=== PATIENT | male | born 1945 | race Caucasian/White ===

== ENCOUNTER 2020-07-08 06:54 | Outpatient (CLI) | payer MEDICARE, SELFPAY ==
[2020-07-08 07:34] LABS: Basophils Absolute Auto 0.1 K/mm3 (0.0-0.1); Eosinophils Absolute Auto 0.4 K/mm3 (0-0.3); Eosinophils Percent Auto 5.7 % (0-4.4); Hematocrit 48.3 % (42.0-52.0); Hemoglobin 16.1 g/dL (14.0-18.0); Immature Granulocyte Absolute 0.05 K/mm3 (0.00-0.031); Immature Granulocyte Percent A 0.7 % (0-0.5); Lymphocytes Absolute Auto 2.68 K/mm3 (0.9-3.2); Lymphocytes Percent Auto 36.6 % (18.3-44.2); Mean Corpuscular HGB Conc 33.3 g/dl (32-36); Mean Corpuscular Hemoglobin 32.3 pg (26-34); Mean Platelet Volume 9.6 fl (7.4-10.4); Monocytes Absolute Auto 0.6 K/mm3 (0.1-0.6); Monocytes Percent Auto 7.9 % (2.6-8.5); Neutrophils Absolute Auto 3.5 K/mm3 (1.3-6.7); Neutrophils Percent Auto 48.1 % (45.5-73.1); Platelet Count Result 225 k/mm3 (150-375); Red Blood Count 4.98 M/mm3 (4.6-6.20); Red Cell Distribution Width 13.1 % (11.5-14.5); White Blood Count 7.3 K/mm3 (4.5-10.0)
[2020-07-08 07:44] LABS: Hemoglobin A1C 5.3 % (<5.7)
[2020-07-08 07:50] LABS: Alanine Aminotransferase 24 U/L (4-50); Albumin Level 4.4 g/dL (3.5-5.1); Alkaline Phosphatase 71 U/L (38-126); Anion Gap 7 mmol/L (8-16); Aspartate Amino Transferase 33 U/L (17-59); Bilirubin,Total 0.6 mg/dL (0.2-1.3); Blood Urea Nitrogen 15 mg/dL (9-20); Calcium 9.1 mg/dL (8.4-10.2); Carbon Dioxide 26 mmol/L (22-30); Chloride 105 mmol/L (98-107); Cholesterol 169 mg/dL (0-200); Estimated Glomerular Filt Rate > 60; Glucose 117 mg/dL (75-110); HDL Direct 66 mg/dL; Sodium 138 mmol/L (137-145); Triglycerides 196 mg/dL (<150)
[2020-07-08 08:02] LABS: LDL Cholesterol Direct 83 mg/dL
[2020-07-08 08:51] LABS: Creatinine Urine 241.9 mg/dL
[2020-07-08 09:16] LABS: MALB Creatinine Ratio 121.7 mg/g (0-30); Microalbumin Urine Random 294.4 mg/L (0-16.7)
[2020-07-08 09:23] LABS: Vitamin D 25 Hydroxy 29.8 ng/mL
== END 2020-07-08 06:55 | disposition home or self-care (01) ==
PROVIDERS: PCP Internal Medicine; Visit Provider Internal Medicine
DX: E78.2 Mixed hyperlipidemia (principal); H35.30 Unspecified macular degeneration; N40.0 Benign prostatic hyperplasia without lower urinary tract symptoms; R73.03 Prediabetes; R97.20 Elevated prostate specific antigen [PSA]; E55.9 Vitamin D deficiency, unspecified
CPT/HCPCS: 36415; 80053; 80061; 82043; 82306; 83036; 84443; 85025

== ENCOUNTER 2020-08-11 07:13 | Outpatient (CLI) | payer MEDICARE, SELFPAY | END 2020-08-11 07:14 | disposition home or self-care (01) | LOC: ANHLAB 07:15 | PROVIDERS: PCP Internal Medicine; Visit Provider Internal Medicine | DX: E78.2 Mixed hyperlipidemia (principal); R79.89 Other specified abnormal findings of blood chemistry | CPT/HCPCS: 36415; 84443 ==

== ENCOUNTER 2020-11-10 07:27 | Outpatient (CLI) | payer MEDICARE, SELFPAY ==
[2020-11-10 08:17] LABS: Anion Gap 7 mmol/L (8-16); Blood Urea Nitrogen 27 mg/dL (9-20); Calcium 9.6 mg/dL (8.4-10.2); Carbon Dioxide 27 mmol/L (22-30); Chloride 107 mmol/L (98-107); Cholesterol 121 mg/dL (0-200); Estimated Glomerular Filt Rate > 60; Glucose 106 mg/dL (75-110); HDL Direct 74 mg/dL; Sodium 141 mmol/L (137-145); Triglycerides 80 mg/dL (<150)
[2020-11-10 08:28] LABS: LDL Cholesterol Direct 33 mg/dL
[2020-11-10 09:08] LABS: Creatinine Urine 131.4 mg/dL
[2020-11-10 09:26] LABS: MALB Creatinine Ratio 130.4 mg/g (0-30); Microalbumin Urine Random 171.4 mg/L (0-16.7)
== END 2020-11-10 07:28 | disposition home or self-care (01) ==
PROVIDERS: PCP Internal Medicine; Visit Provider Internal Medicine
DX: E78.2 Mixed hyperlipidemia (principal); R03.0 Elevated blood-pressure reading, without diagnosis of hypertension; R73.03 Prediabetes
CPT/HCPCS: 36415; 80048; 80061; 82043

== ENCOUNTER 2021-01-06 08:10 | Outpatient (CLI) | payer MEDICARE, SELFPAY ==
--- NOTE | ~2021-01-06 | CT_ITS ---
EXAMINATION: CT abdomen pelvis w con EXAM DATE: 01/06/2021 09:07 INDICATION: Prostate cancer. TECHNIQUE: Spiral CT of the abdomen and pelvis was performed following intravenous injection of 100 m L Omnipaque 350. Axial, coronal and sagittal images of the abdomen and pelvis were reviewed. The do se-length product (DLP) for this examination was 320.40 mGy-cm. The exposure was tailored according to patient size (auto mA exposure control), and iterative reconstruction (ASIR) was used as additiona l dose reduction technique. There is no prior study for comparison. FINDINGS: The liver, spleen, adrenal glands and pancreas are unremarkable. Gallbladder is unremarkab le. No biliary obstruction. There is a bifurcated left renal pelvis, collecting system with mild to moderate hydronephrosis of the inferior moiety. These appear to connect at the renal pelvis, only on e normal calibered ureter identified. No obstructing stones. Prostatomegaly with the prostate measuri ng about 6 cm in diameter and probable TURP defect, correlate with history. Small amount of bladder tenting toward the urachus. There is no retroperitoneal or pelvic lymphadenopathy. There is mild t o moderate scattered arteriosclerotic disease. Small umbilical and tiny inguinal fat-containing herni as. The appendix is normal. The stomach and small bowel are unremarkable. There is expected amount of c olonic stool. No free intraperitoneal gas. The heart is normal in size. There are no pericardial or pleural effusions. The lung bases are unremarkable. There are no osteoblastic or osteolytic les ions identified. There is mild thoracolumbar scoliosis. IMPRESSION: 1. No evidence of metastatic disease. 2. 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 3. Moderate prostatomegaly. Reviewed, dictated and finalized at location B. IMPRESSION: 1. No evidence of metastatic disease. 2. 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 3. Moderate prostatomegaly.
--- NOTE | ~2021-01-06 | NM_ITS ---
EXAMINATION: NM bone scan whole body DATE: 01/06/2021 12:16 INDICATION: Prostate cancer TECHNIQUE: 25.0 mCi Tc-99m HDP was administered intravenously. Delayed whole-body scintigrams were o btained. COMPARISON: CT abdomen and pelvis and chest radiograph dated 01/06/2021 FINDINGS: Focus of moderate increased uptake at the anterior left sixth rib corresponding to a linear band of s clerosis on CT most consistent with a healing rib fracture. Mild likely degenerative joint centered u ptake at the sternomanubrial articulation, bilateral acromioclavicular and sternoclavicular joints, b ilateral mid feet, hands and wrists. No other suspicious foci of abnormal bone uptake to suggest meta static disease. IMPRESSION: 1. Scattered mild likely degenerative joint centered uptake as well as a single focus of moderate upt mary at the anterior left sixth rib which appears to correspond to a healing rib fracture. No other fo ci suspicious for metastatic disease. Reviewed, dictated and finalized at location A. IMPRESSION: 1. Scattered mild likely degenerative joint centered uptake as well as a single focus of moderate uptake at the anterior left sixth rib which appears to corre spond to a healing rib fracture. No other foci suspicious for metastatic diseas e.
--- NOTE | ~2021-01-06 | XR_ITS ---
EXAMINATION: XR chest 2V DATE: 01/06/2021 08:31 INDICATION: Prostate cancer TECHNIQUE: PA and lateral views of the chest were obtained. COMPARISON: Chest radiograph dated 07/03/[address] dated 01/17/2019 FINDINGS: The lungs are clear with no focal airspace opacities, pulmonary edema, pleural effusion or pneumothor ax. The cardiomediastinal silhouette is normal. Calcified mediastinal lymph nodes consistent with old granulomatous disease. Mild thoracic spondylosis. Heterotopic ossification along the right coracocla vicular ligament likely sequela of chronic trauma. IMPRESSION: 1. No acute cardiopulmonary disease. Reviewed, dictated and finalized at location A.
[2021-01-06 09:06] LABS: Estimated Glomerular Filt Rate > 60
== END 2021-01-06 08:11 | disposition home or self-care (01) ==
PROVIDERS: PCP Internal Medicine; Visit Provider Urology
DX: C61 Malignant neoplasm of prostate (principal)
CPT/HCPCS: 71046; 74177; 78306; A9561; Q9967

== ENCOUNTER 2021-04-28 08:20 | Outpatient (CLI) | payer MEDICARE, SELFPAY ==
--- NOTE | ~2021-04-28 | MR_ITS ---
EXAMINATION: MR pelvis wo/w con DATE: 04/28/2021 09:52 INDICATION: Prostate cancer TECHNIQUE: Magnetic resonance imaging (MRI) of the pelvis was performed without and with 13 mL Multih ance intravenous contrast. Fullfield sequences of the pelvis included axial and coronal T2-weighted S S FSE, axial, sagittal and coronal 2D FIESTA, axial 2D FIESTA FS, axial SSFSE-IR BRANDAN, axial dual-echo T1-weighted FSPGR, axial and coronal T1 weighted LAVA, 3D axial T2 Cube, axial diffusion-weighted SE with apparent diffusion coefficient (ADC) maps. Postcontrast sequences included a time course axial T1-weighted LAVA and sagittal and coronal T1-weighted LAVA. COMPARISON: CT abdomen and pelvis dated 01/06/2021 FINDINGS: Prostate measures 4.9 x 3.3 x 4.2 cm. 3.8 x 4.7 x 1.3 cm region of T2 hyperintense hydrocele position ed between the prostate and the anterior wall of the rectum. No pathologically enlarged pelvic or ing uinal lymphadenopathy. Small amount of ascites in the pelvis. Again seen is a parapelvic cyst at the left kidney. Visualized bowels are unremarkable. Mild lumbar levocurvature with moderate spondylosis. Normal bone marrow signal throughout with no pathologic marrow replacing process. IMPRESSION: 1. 3.8 x 4.7 x 1.3 cm collection of hydrogel positioned between the anterior wall of the rectum and t he enlarged prostate. No evident metastatic disease. Reviewed, dictated and finalized at location A. IMPRESSION: 1. 3.8 x 4.7 x 1.3 cm collection of hydrogel positioned between the anterior wa ll of the rectum and the enlarged prostate. No evident metastatic disease.
[2021-04-28 09:05] LABS: Estimated Glomerular Filt Rate > 60
== END 2021-04-28 08:21 | disposition home or self-care (01) ==
LOC: ANHIMG 08:26
PROVIDERS: PCP Internal Medicine; Visit Provider Radiology Radiation Oncology
DX: C61 Malignant neoplasm of prostate (principal)
CPT/HCPCS: 72197; A9577

== ENCOUNTER 2021-08-03 07:51 | Outpatient (CLI) | payer MEDICARE, SELFPAY ==
[2021-08-03 08:20] LABS: Basophils Absolute Auto 0.1 K/mm3 (0.0-0.1); Basophils Percent Auto 1.1 % (0.2-1.2); Eosinophils Absolute Auto 0.3 K/mm3 (0-0.3); Eosinophils Percent Auto 5.8 % (0-4.4); Hematocrit 39.1 % (42.0-52.0); Hemoglobin 13.1 g/dL (14.0-18.0); Immature Granulocyte Absolute 0.03 K/mm3 (0.00-0.031); Immature Granulocyte Percent A 0.7 % (0-0.5); Lymphocytes Absolute Auto 0.85 K/mm3 (0.9-3.2); Lymphocytes Percent Auto 19.1 % (18.3-44.2); Mean Corpuscular HGB Conc 33.5 g/dl (32-36); Mean Corpuscular Hemoglobin 33.9 pg (26-34); Monocytes Absolute Auto 0.7 K/mm3 (0.1-0.6); Neutrophils Absolute Auto 2.6 K/mm3 (1.3-6.7); Neutrophils Percent Auto 58.3 % (45.5-73.1); Platelet Count Result 208 k/mm3 (150-375); Red Blood Count 3.87 M/mm3 (4.6-6.20); Red Cell Distribution Width 13.5 % (11.5-14.5); White Blood Count 4.5 K/mm3 (4.5-10.0)
[2021-08-03 08:30] LABS: Hemoglobin A1C 5.2 % (<5.7)
[2021-08-03 08:32] LABS: Alanine Aminotransferase 45 U/L (4-50); Albumin Level 4.6 g/dL (3.5-5.1); Alkaline Phosphatase 82 U/L (38-126); Anion Gap 5 mmol/L (8-16); Aspartate Amino Transferase 42 U/L (17-59); Bilirubin,Total 0.7 mg/dL (0.2-1.3); Blood Urea Nitrogen 18 mg/dL (9-20); Calcium 9.7 mg/dL (8.4-10.2); Carbon Dioxide 26 mmol/L (22-30); Chloride 105 mmol/L (98-107); Estimated Glomerular Filt Rate > 60; Glucose 121 mg/dL (65-110); Potassium 3.9 mmol/L (3.4-5.0); Sodium 136 mmol/L (137-145)
[2021-08-03 08:44] LABS: Creatinine Urine 143.2 mg/dL
[2021-08-03 08:49] LABS: MALB Creatinine Ratio 123.4 mg/g (0-30); Microalbumin Urine Random 176.7 mg/L (0-16.7)
[2021-08-03 08:54] LABS: Vitamin D 25 Hydroxy 36.5 ng/mL
[2021-08-03 09:02] LABS: Prostate Specific Antigen 0.1 ng/mL (< OR = 4.0)
== END 2021-08-03 07:52 | disposition home or self-care (01) ==
LOC: ANHLAB 07:55
PROVIDERS: PCP Internal Medicine; Visit Provider Internal Medicine
DX: E55.9 Vitamin D deficiency, unspecified (principal); I10 Essential (primary) hypertension; R97.20 Elevated prostate specific antigen [PSA]; Z12.5 Encounter for screening for malignant neoplasm of prostate; R73.03 Prediabetes
CPT/HCPCS: 36415; 80053; 82043; 82306; 83036; 84153; 84443; 85025; G0103

== ENCOUNTER 2022-07-11 09:46 | Outpatient (CLI) | payer MEDICARE, SELFPAY ==
[2022-07-11 10:22] LABS: Basophils Absolute Auto 0.1 K/mm3 (0.0-0.1); Basophils Percent Auto 1.2 % (0.2-1.2); Eosinophils Absolute Auto 0.4 K/mm3 (0-0.3); Eosinophils Percent Auto 6.3 % (0-4.4); Hematocrit 47.6 % (42.0-52.0); Hemoglobin 15.8 g/dL (14.0-18.0); Immature Granulocyte Absolute 0.04 K/mm3 (0.00-0.031); Immature Granulocyte Percent A 0.7 % (0-0.5); Lymphocytes Absolute Auto 1.09 K/mm3 (0.9-3.2); Lymphocytes Percent Auto 18.5 % (18.3-44.2); Mean Corpuscular HGB Conc 33.2 g/dl (32-36); Mean Corpuscular Hemoglobin 32.6 pg (26-34); Mean Corpuscular Volume 98.1 fl (80-100); Mean Platelet Volume 9.4 fl (7.4-10.4); Monocytes Absolute Auto 0.7 K/mm3 (0.1-0.6); Monocytes Percent Auto 11.5 % (2.6-8.5); Neutrophils Absolute Auto 3.6 K/mm3 (1.3-6.7); Neutrophils Percent Auto 61.8 % (45.5-73.1); Platelet Count Result 267 k/mm3 (150-375); Red Blood Count 4.85 M/mm3 (4.6-6.20); Red Cell Distribution Width 13.4 % (11.5-14.5); White Blood Count 5.9 K/mm3 (4.5-10.0)
[2022-07-11 11:06] LABS: Alanine Aminotransferase 21 U/L (6-50); Albumin Level 4.8 g/dL (3.5-5.1); Alkaline Phosphatase 114 U/L (38-126); Anion Gap 13 mmol/L (8-16); Aspartate Amino Transferase 28 U/L (17-59); Blood Urea Nitrogen 17 mg/dL (9-20); Calcium 9.2 mg/dL (8.4-10.2); Carbon Dioxide 23 mmol/L (22-30); Chloride 106 mmol/L (98-107); Cholesterol 181 mg/dL (0-200); Estimated Glomerular Filt Rate 53; Glucose 113 mg/dL (65-110); HDL Direct 45 mg/dL; Potassium 4.1 mmol/L (3.4-5.0); Sodium 142 mmol/L (137-145); Triglycerides 183 mg/dL (<150)
[2022-07-11 11:16] LABS: LDL Cholesterol Direct 89 mg/dL
[2022-07-11 11:31] LABS: Prostate Specific Antigen 0.5 ng/mL (< OR = 4.0)
[2022-07-11 12:12] LABS: Folic Acid 8.6 ng/mL (2.76->20)
== END 2022-07-11 09:47 | disposition home or self-care (01) ==
LOC: ANHLAB 09:49
PROVIDERS: PCP Internal Medicine; Visit Provider Internal Medicine
DX: E78.2 Mixed hyperlipidemia (principal); R73.03 Prediabetes; I10 Essential (primary) hypertension; Z12.5 Encounter for screening for malignant neoplasm of prostate; R53.83 Other fatigue; E66.3 Overweight
CPT/HCPCS: 36415; 80053; 80061; 82607; 82746; 84153; 84443; 85025; G0103

== ENCOUNTER → 2023-05-04 09:29 | Outpatient (CLI) | payer MEDICARE, SELFPAY ==
--- NOTE | ~2023-05-04 | CT_ITS ---
EXAMINATION: CT abdomen pelvis wo con DATE: 05/04/2023 09:55 INDICATION: Prostate cancer TECHNIQUE: Computed tomography (CT) of the abdomen and pelvis was performed without intravenous contr ast. The dose-length product (DLP) was 346.14 mGy-cm. Automated exposure control and iterative recons truction technique were employed. COMPARISON: 01/06/2021 FINDINGS: A calcified nodule of the right middle lobe is consistent with old granulomatous disease. T he heart size is normal. The liver, spleen, pancreas, gallbladder, and adrenal glands are normal. The right kidney is unremarkable. There are peripelvic cysts of the left kidney. No pathologically enlar ged abdominal or pelvic lymph nodes are identified. The appendix is normal. No free intraperitoneal g as or evidence of bowel obstruction. There is mild lumbar spondylosis. IMPRESSION: 1. No acute findings or evidence of metastatic disease. Reviewed, dictated and finalized at location F.
== END ==
PROVIDERS: PCP Urology; Visit Provider Urology
DX: C61 Malignant neoplasm of prostate (principal)
CPT/HCPCS: 74176

== ENCOUNTER 2023-08-29 09:23 | Outpatient (CLI) | payer MEDICARE, SELFPAY ==
[2023-08-29 09:49] LABS: Alanine Aminotransferase 20 U/L (6-50); Albumin Level 4.4 g/dL (3.5-5.1); Alkaline Phosphatase 86 U/L (38-126); Anion Gap 8 mmol/L (8-16); Aspartate Amino Transferase 28 U/L (17-59); Bilirubin,Total 0.7 mg/dL (0.2-1.3); Blood Urea Nitrogen 18 mg/dL (9-20); Calcium 9.1 mg/dL (8.4-10.2); Carbon Dioxide 26 mmol/L (22-30); Chloride 108 mmol/L (98-107); Cholesterol 150 mg/dL (0-200); Estimated Glomerular Filt Rate > 60; Glucose 113 mg/dL (65-110); HDL Direct 83 mg/dL; Potassium 3.9 mmol/L (3.4-5.0); Sodium 142 mmol/L (137-145); Triglycerides 67 mg/dL (<150)
[2023-08-29 10:00] LABS: LDL Cholesterol Direct 60 mg/dL
[2023-08-29 10:01] LABS: Basophils Absolute Auto 0.1 K/mm3 (0.0-0.1); Basophils Percent Auto 1.2 % (0.2-1.2); Eosinophils Absolute Auto 0.4 K/mm3 (0-0.3); Eosinophils Percent Auto 6.1 % (0-4.4); Hematocrit 45.2 % (42.0-52.0); Hemoglobin 14.2 g/dL (14.0-18.0); Immature Granulocyte Absolute 0.04 K/mm3 (0.00-0.031); Immature Granulocyte Percent A 0.7 % (0-0.5); Lymphocytes Absolute Auto 1.64 K/mm3 (0.9-3.2); Lymphocytes Percent Auto 27.2 % (18.3-44.2); Mean Corpuscular HGB Conc 31.4 g/dl (32-36); Mean Corpuscular Hemoglobin 31.1 pg (26-34); Mean Corpuscular Volume 98.9 fl (80-100); Mean Platelet Volume 9.8 fl (7.4-10.4); Monocytes Absolute Auto 0.6 K/mm3 (0.1-0.6); Monocytes Percent Auto 10.1 % (2.6-8.5); Neutrophils Absolute Auto 3.3 K/mm3 (1.3-6.7); Neutrophils Percent Auto 54.7 % (45.5-73.1); Platelet Count Result 236 k/mm3 (150-375); Red Blood Count 4.57 M/mm3 (4.6-6.20); Red Cell Distribution Width 15.2 % (11.5-14.5)
[2023-08-29 10:26] LABS: Vitamin D 25 Hydroxy 36.5 ng/mL
[2023-08-29 10:55] LABS: Folic Acid 14.9 ng/mL (2.76->20)
== END 2023-08-29 09:24 | disposition home or self-care (01) ==
LOC: ANHLAB 09:28
PROVIDERS: PCP Physician Assistant; Visit Provider Physician Assistant
DX: R53.83 Other fatigue (principal); I10 Essential (primary) hypertension; E66.3 Overweight; E55.9 Vitamin D deficiency, unspecified
CPT/HCPCS: 36415; 80053; 80061; 82306; 82607; 82746; 84443; 85025

== ENCOUNTER 2024-09-03 10:01 | Outpatient (CLI) | payer MEDICARE, SELFPAY ==
[2024-09-03 10:25] LABS: Hematocrit 45.1 % (42.0-52.0); Hemoglobin 14.5 g/dL (14.0-18.0); Mean Corpuscular HGB Conc 32.2 g/dl (32-36); Mean Corpuscular Hemoglobin 31.9 pg (26-34); Mean Corpuscular Volume 99.1 fl (80-100); Mean Platelet Volume 9.6 fl (7.4-10.4); Platelet Count Result 233 k/mm3 (150-375); Red Blood Count 4.55 M/mm3 (4.6-6.20); Red Cell Distribution Width 13.3 % (11.5-14.5); White Blood Count 5.6 K/mm3 (4.5-10.0)
--- OUTSIDE RECORDS SUMMARY | 2024-09-03 10:49 | XMS_ITS | Continuity of Care Document ---
Author Organization [facility] Address [address] [place] [address] Phone Care Team Providers Care Information Architect Name Role Phone Aquiles Feliz Unavailable Unavailable Procedures Procedure Date Eye Exam & Treatment Ophthalmoscopy, Subsequent Optic Nerve Topography Eye Exam & Treatment Ophthalmoscopy, Subsequent Optic Nerve Topography Eye Exam Established Pt Ophthalmoscopy, Subsequent Eye Exam Established Pt Ophthalmoscopy, Subsequent Eye Exam & Treatment Ophthalmoscopy, Subsequent Optic Nerve Topography Eye Exam & Treatment Injection Eye Drug Kenalog/Triamcinolone Acetonide Inj Ophthalmoscopy, Subsequent Optic Nerve Topography Eye Exam & Treatment Ophthalmoscopy, Subsequent Optic Nerve Topography Optic Nerve Topography Eye Exam Established Pt Ophthalmoscopy, Subsequent Eye Exam Established Pt Ophthalmoscopy, Subsequent Optic Nerve Topography Eye Exam Established Pt Ophthalmoscopy, Subsequent Optic Nerve Topography Injection Eye Drug Kenalog/Triamcinolone Acetonide Inj Eye Exam Established Pt Ophthalmoscopy, Subsequent Optic Nerve Topography Eye Exam Established Pt Ophthalmoscopy, Subsequent Eye Exam Established Pt Ophthalmoscopy, Subsequent Office/outpatient Visit, Est Ophthalmoscopy, Subsequent Office/outpatient Visit, Est Ophthalmoscopy, Subsequent Eye Exam & Treatment Refraction Advance Directives Directive Yes / No Effective Date File Name No Information Encounters Encounter Description Practice Location Reason(s) For Visit Diagnoses Date Provider Providers Copied on Encounter [facility], [address], [place], [place], [id number], [place] tel:[phone] [facility] No Information 0-201 0 Aquiles Piper. [address] [place], [address], [place]. tel:[phone] Referring Provider: Feliz Franco, [address] [place], [place], [facility]. tel:[phone] [facility], [address], [place], [place], [id number], [place] tel:[phone] [facility] No Information 8-201 0 Aquiles Piper. [address] [place], [address], [place]. tel:[phone] Referring Provider: Feliz Franco, [address] [place], [address]. tel:[phone] [facility], [address], [place], [place], [id number], [place] tel:[phone] [facility] No Information 4-200 9 Aquiles Piper. [address] [place], [address], [place]. tel:[phone] Referring Provider: Feliz Franco, [address] [place], [address]. tel:[phone] [facility], [address], [place], [place], [address], [place] tel:[phone] [facility] No Information Nov-0 2-200 9 Aquiles Piper. [address] [place], [address], [place]. tel:[phone] Referring Provider: Feliz Franco, [address] [place], [address]. tel:[phone] [facility] Eye [facility], [address], [place], [place], [id number], [place] tel:[phone] [facility] No Information Oct-0 5-200 9 Aquiles Piper. [address] [place], [address], [place]. tel:[phone] Referring Provider: Feliz Franco, [address] [place], [address]. tel:[phone] [facility], [address], [place], [place], [id number], [place] tel:[phone] [facility] No Information Sep-2 1-200 9 Aquiles Piper. [address] [place], [address], [place]. tel:[phone] Referring Provider: Feliz Franco, [address] [place], [address]. tel:[phone] [facility], [address], [place], [place], [id number], [place] tel:[phone] [facility] No Information May-1 8-200 9 Aquiles Piper. [address] [place], [address], [place]. tel:[phone] Referring Provider: Feliz Franco, [address] [place], [address]. tel:[phone] [facility], [address], [place], [place], [address], [place] tel:[phone] [facility] No Information Danie-2 2-200 9 Aquiles Feliz. [address] [place], [address], [place]. tel:[phone] [facility] Eye [facility], [address], [place], [place], [id number], [place] tel:[phone] [facility] No Information Nov-2 0-200 8 Kwan Feliz. [address] [place], [address], [place]. tel:[phone] Referring Provider: Feliz Franco, [address] [place], [address]. tel:[phone] [facility] Eye [facility], [address], [place], [place], [id number], [place] tel:[phone] [facility] No Information Sep-2 2-200 8 Aquiles Piper. [address] [place], [address], [place]. tel:[phone] Referring Provider: Feliz Franco, [address] [place], [address]. tel:[phone] [facility], [address], [place], [place], [id number], [place] tel:[phone] [facility] No Information Sep-0 8-200 8 Aquiles Piper. [address] [place], [address], [place]. tel:[phone] Referring Provider: Feliz Franco, [address] [place], [address]. tel:[phone] [facility] Eye [facility], [address], [place], [place], [id number], [place] tel:[phone] [facility] No Information Danie-0 3-200 8 Aquiles Piper. [address] [place], [address], [place]. tel:[phone] [facility], [address], [place], [place], [address], [place] tel:[phone] [facility] No Information 0 5200 7 Aquiles Piper. [address] [place], [place], [facility], . tel:[phone] [facility], [address], [place], [place], [address], [place] tel:[phone] [facility] No Information 0 5200 7 Aqulies Piper. [address] [place], [place], [facility], . tel:[phone] Office/outpat ient Visit, [facility] Eye [facility], [address], [place], [place], [id number], [place] tel:[phone] [facility] No Information Sep-2 2200 7 Aquiles Piper. [address] [place], [place], [facility], . tel:[phone] [facility] Eye [facility], [address], [place], [place], [id number], [place] tel:[phone] [facility] No Information -200 7 Spencer Dexter. [address], [place], [place], [facility], . tel:[phone] Family History Family Member Type Diagnosis Age At Onset No Information Payers Payer name Insurance type Covered constitution party ID Authortatoa ignacio(s) BCBS [place] [id number] Medicare [facility] [id number] Social History Type Description Quantity Date Captured Comments Sex Male Smoking Status No Information Chief Complaint And Reason For Visit No Information Reason For Referral Reason For Referral No Information History Of Present Illness Encounter Date Complaint History Of Prese nt Illness No Information Functional Status Date Functional Assessmen t No Information Instructions Date Instruction Additional Infor mation No Information Assessments Type Assessment Date No Information Patient Care Teams Name Effective Dates (start - stop) Status Members No Information
[2024-09-03 10:50] LABS: Alanine Aminotransferase 19 U/L (6-50); Albumin Level 4.3 g/dL (3.5-5.1); Alkaline Phosphatase 78 U/L (38-126); Anion Gap 12 mmol/L (4-12); Aspartate Amino Transferase 27 U/L (17-59); Blood Urea Nitrogen 17 mg/dL (9-20); Calcium 8.7 mg/dL (8.4-10.2); Carbon Dioxide 24 mmol/L (22-30); Chloride 107 mmol/L (98-107); Cholesterol 166 mg/dL (0-200); Estimated Glomerular Filt Rate > 60; Glucose 112 mg/dL (65-110); HDL Direct 60 mg/dL; Potassium 3.9 mmol/L (3.4-5.0); Sodium 143 mmol/L (137-145); Triglycerides 201 mg/dL (<150)
[2024-09-03 11:01] LABS: LDL Cholesterol Direct 70 mg/dL
[2024-09-03 12:22] LABS: Vitamin D 25 Hydroxy 27.1 ng/mL
[2024-09-03 13:05] LABS: Hemoglobin A1C 5.6 % (<5.7)
== END 2024-09-03 10:02 | disposition home or self-care (01) ==
LOC: ANHLAB 10:02
PROVIDERS: PCP Nurse Practitioner; Visit Provider Nurse Practitioner
DX: E78.5 Hyperlipidemia, unspecified (principal); R73.03 Prediabetes; I10 Essential (primary) hypertension; E55.9 Vitamin D deficiency, unspecified; Z79.899 Other long term (current) drug therapy
CPT/HCPCS: 36415; 80053; 80061; 82306; 83036; 84443; 85027